=== PATIENT | male | born 1985 | race Caucasian/White ===

== ENCOUNTER 2017-02-03 18:17 | Emergency (ER) | payer SELFPAY ==
[2017-02-03 18:34] VITALS: BP 142/95
--- NOTE | 2017-02-03 19:04 | ER Document Report ---
HPI - HPI Patient complains to provider of: right foot and ankle swelling Pain Level: 5 Context: Patient is a 31-year-old male comes emergency department for chief complaint of right foot and ankle pain and swelling. He states that he kicked a door with his foot the night before last, he states that he has had pain since that time with some swelling, he states he worked all day today on his foot and the swelling and pain increased. He denies any other locations of pain. He denies any daily medications or medical problems. - DERM Skin Color: Normal Past Medical History - General Information source: Patient - Social History Smoking Status: Never Smoker Drug Abuse: None Lives with: Alone Family History: Reviewed & Not Pertinent Patient has suicidal ideation: No Patient has homicidal ideation: No - Medical History Medical History: Negative Renal/ Medical History: Denies: Hx Peritoneal Dialysis Surgical Hx: Negative - Immunizations Immunizations up to date: Yes Hx Diphtheria, Pertussis, Tetanus Vaccination: Yes Vertical Provider Document - CONSTITUTIONAL General Appearance: WD/WN, No Apparent Distress - INFECTION CONTROL TRAVEL OUTSIDE OF THE [place] IN LAST 30 DAYS: No - HEENT HEENT: Atraumatic, Normocephalic - NECK Neck: Normal Inspection - RESPIRATORY Respiratory: Breath Sounds Normal, No Respiratory Distress O2 Sat by Pulse Oximetry: 99 - CARDIOVASCULAR Cardiovascular: Regular Rate, Regular Rhythm - GI/ABDOMEN Gastrointestinal: Abdomen Soft, Abdomen Non-Tender - MUSCULOSKELETAL/EXTREMETIES Musculoskeletal/Extremeties: Tender - There is tenderness over both the right medial and lateral malleolus, there is soft tissue swelling, there is ecchymosis noted just inferior to the medial malleolus of the right foot. Mild tenderness over the dorsal aspect of the foot. Normal capillary refill and sensation, normal dorsalis pedis. Normal leg, knee exam otherwise. Course - Re-evaluation Re-evalutation: No open wounds. There is soft tissue swelling and ecchymosis consistent with patient's reported kinking trauma. X-rays of the foot and ankle show no fractures or dislocations. Consistent with sprain and soft tissue injury. Placed on crutches, provided with ankle stirrup and Wally wrap, discussed recommendations in detail, provided with work release. Patient states understanding and agreement. - Vital Signs Vital signs: Temp Pulse Resp BP Pulse Ox 99.3 F 89 16 142/95 H 99 02/03/17 18:29 02/03/17 18:29 02/03/17 18:29 02/03/17 18:29 02/03/17 18:29 Procedures - Immobilization Right ankle/foot Pre-Proc Neuro Vasc Exam: Normal Immobilizer type: Wally wrap, Ankle stirrup Performed by: PCT Post-Proc Neuro Vasc Exam: Normal Alignment checked and good: Yes Discharge - Discharge Clinical Impression: Right foot pain Right ankle injury Qualifiers: Encounter type: initial encounter Qualified Code(s): S99.911A - Unspecified injury of right ankle, initial encounter Condition: Stable Disposition: HOME, SELF-CARE Instructions: Use of Crutches ([facility]), Ice & Elevation ([facility]) Additional Instructions: Your examination is consistent with a bad sprain with soft tissue swelling and bleeding/bruising. No fractures are seen on x-ray. I recommend you use crutches, elevate, use the splint provided, do this for at least 3 days. Apply ice to the area 3-4 times a day for 10-15 minutes. Take the naproxen anti-inflammatory as prescribed. Afterwards begin to resume normal activity as tolerated. Follow-up with primary care. Return to emergency department for any concerning worsening symptoms including severe pain or swelling. Prescriptions: Naproxen 500 mg PO BID #20 tablet Forms: Return to Work
--- NOTE | 2017-02-03 19:51 | RADIOLOGY REPORT (SQ) ---
EXAM DESCRIPTION: FOOT RIGHT COMPLETE COMPLETED DATE/TIME: 02/03/2017 7:22 pm REASON FOR STUDY: injury, trauma, pain, ecchymosis COMPARISON: None. NUMBER OF VIEWS: Three views. TECHNIQUE: AP, lateral and oblique radiographic images acquired of the right foot. LIMITATIONS: None. FINDINGS: MINERALIZATION: Normal. BONES: No acute fracture or dislocation. No worrisome bone lesions. JOINTS: No effusions. SOFT TISSUES: No soft tissue swelling. No foreign body. OTHER: No other significant finding. IMPRESSION: NEGATIVE STUDY OF THE RIGHT FOOT. NO RADIOGRAPHIC EVIDENCE OF ACUTE INJURY. TECHNICAL DOCUMENTATION: JOB ID: [id number] [employer]- All Rights Reserved
--- NOTE | 2017-02-03 19:54 | RADIOLOGY REPORT (SQ) ---
EXAM DESCRIPTION: ANKLE RIGHT COMPLETE COMPLETED DATE/TIME: 02/03/2017 7:22 pm REASON FOR STUDY: injury, trauma, pain, ecchymosis COMPARISON: None. NUMBER OF VIEWS: Three views. TECHNIQUE: AP, lateral, and oblique radiographic images acquired of the right ankle. LIMITATIONS: None. FINDINGS: MINERALIZATION: Normal. BONES: No acute fracture or dislocation. No worrisome bone lesions. JOINTS: No effusions. SOFT TISSUES: No soft tissue swelling. No foreign body. OTHER: No other significant finding. IMPRESSION: NEGATIVE STUDY OF THE RIGHT ANKLE. NO RADIOGRAPHIC EVIDENCE OF ACUTE INJURY. TECHNICAL DOCUMENTATION: JOB ID: [id number] [employer]- All Rights Reserved
[2017-02-03] MEDS ORDERED: NAPROXEN 250 MG TABLET PO ONE (20:11)
== END 2017-02-03 20:39 | disposition home or self-care (01) ==
LOC: ER 18:17
DX: S99.911A Unspecified injury of right ankle, initial encounter (principal); S90.31XA Contusion of right foot, initial encounter; M79.671 Pain in right foot; M25.571 Pain in right ankle and joints of right foot; W22.8XXA Striking against or struck by other objects, initial encounter
CPT/HCPCS: 99283; 73610; 73630; L4350